=== PATIENT | female | born 1960 | race Caucasian/White ===

== ENCOUNTER 2020-02-03 08:32 | Outpatient (CLI) | payer OTHER ==
[2020-02-03] MEDS ORDERED: Iopamidol-370 76% 500 ML 1 ML ONE (09:25)
--- NOTE | 2020-02-03 10:41 | CT ---
Exam: Abdomen CT scan with IV contrast: HISTORY: Left upper quadrant pain, diarrhea FINDINGS: Minimal patchy linear pleural-based parenchymal changes in the lateral aspect of the right middle lob e and also the lateral aspect of the lingula. Evidence for severe dextroscoliosis of the thoracic spine. Fatty changes of the liver. Gallbladder, p ancreas, spleen, adrenal glands are unremarkable. No evidence for renal calculus. No calyceal dilatation although there is some minimal focal dilatation of the upper right ureter up to 1.7 cm in diameter. It goes back to a normal caliber below this level. No abscess adenopathy or abnormal fluid collection. Small focal area of possible very mild left upper colon wall thickening which may j ust represent an area of spasm, no area colonic fat stranding. IMPRESSION: Patchy subpleural linear parenchymal changes in the lateral aspect of the right middle lobe and lingu la. Fatty changes in the liver. Focal area of upper right ureteral dilatation without evidence for renal calculus or obstruction. Small focus of possible very mild colonic wall thickening involving the upper left colon which I favo r to be an area of spasm without evidence for other associated pericolonic changes.
== END 2020-02-03 08:33 | disposition home or self-care (01) ==
LOC: BICCT 08:32
PROVIDERS: ATTEND Registered Nurse
DX: R10.12 Left upper quadrant pain (principal); N28.82 Megaloureter
CPT/HCPCS: 74160